=== PATIENT | male | born 1950 | race Caucasian/White ===

== ENCOUNTER → 2017-01-12 | Outpatient (CLI) | payer OTHER ==
[2017-01-12 14:25] LABS: RATIO 16.9 mcg/mg (0-30.0)
[2017-01-12 14:33] LABS: ESTIMATED AVERAGE GLUCOSE 126 mg/dl; HA1C FLAG Normal (Normal)
[2017-01-12 15:15] LABS: ALKALINE PHOSPHATASE 56 U/L (45-117); ALT/SGPT 34 U/L (12-78); AST/SGOT 19 U/L (15-37); BLOOD UREA NITROGEN 23 mg/dl (7-18); BUN/CREATININE RATIO 14.1 (10-20); CALCIUM 8.9 mg/dl (8.5-10.1); CARBON DIOXIDE 26 mmol/L (21-32); CHLORIDE 111 mmol/L (98-107); CHOLESTEROL 131 mg/dl (0-200); GLUCOSE 128 mg/dl (70-99); POTASSIUM 4.2 mmol/L (3.5-5.1); SODIUM 144 mmol/L (136-145); TRIGLYCERIDES 100 mg/dl (0-150); VERY LOW DENSITY LIPOPROT CALC 20 mg/dl
[2017-01-12 15:19] LABS: ALB/GLOB RATIO 1.2 (0.9-2); CHOLESTEROL/HDL RATIO 2.4; HDL CHOLESTEROL 54 mg/dl; LDL CHOLESTEROL CALCULATED 57 mg/dl
== END | disposition home or self-care (01) ==
LOC: C.LABMFLN 08:25
PROVIDERS: ATTEND Family Medicine
DX: E11.9 Type 2 diabetes mellitus without complications (principal); E78.00 Pure hypercholesterolemia, unspecified; I10 Essential (primary) hypertension

== ENCOUNTER → 2017-01-15 | Outpatient (CLI) | payer OTHER | END | disposition home or self-care (01) | LOC: C.PATHSPEC 13:46 | PROVIDERS: ATTEND Family Medicine | DX: L82.1 Other seborrheic keratosis (principal) ==

== ENCOUNTER → 2017-07-14 | Outpatient (CLI) | payer OTHER ==
[2017-07-14 13:24] LABS: ESTIMATED AVERAGE GLUCOSE 128 mg/dl; HA1C FLAG Normal (Normal)
[2017-07-14 13:54] LABS: RATIO 19.1 mcg/mg (0-30.0)
[2017-07-14 13:58] LABS: ALT/SGPT 28 U/L (12-78); BLOOD UREA NITROGEN 26 mg/dl (7-18); BUN/CREATININE RATIO 15.2 (10-20); CARBON DIOXIDE 29 mmol/L (21-32); CHLORIDE 109 mmol/L (98-107); CHOLESTEROL 118 mg/dl (0-200); GLUCOSE 129 mg/dl (70-99); POTASSIUM 4.2 mmol/L (3.5-5.1); SODIUM 142 mmol/L (136-145); TRIGLYCERIDES 148 mg/dl (0-150); VERY LOW DENSITY LIPOPROT CALC 30 mg/dl
[2017-07-14 14:03] LABS: ALB/GLOB RATIO 1.1 (0.9-2); ALKALINE PHOSPHATASE 54 U/L (45-117); AST/SGOT 16 U/L (15-37); CHOLESTEROL/HDL RATIO 2.5; HDL CHOLESTEROL 47 mg/dl; LDL CHOLESTEROL CALCULATED 41 mg/dl; PROSTATE SPECIFIC ANTIGEN 0.619 ng/ml (0.000-4.000)
== END | disposition home or self-care (01) ==
LOC: C.LABMFLN 07:04
PROVIDERS: ATTEND Family Medicine
DX: E11.9 Type 2 diabetes mellitus without complications (principal); E78.00 Pure hypercholesterolemia, unspecified; I10 Essential (primary) hypertension; F25.9 Schizoaffective disorder, unspecified

== ENCOUNTER → 2017-10-27 | Outpatient (CLI) | payer OTHER | END | disposition home or self-care (01) | LOC: C.PATHSPEC 16:30 | PROVIDERS: ATTEND Dermatology | DX: C44.319 Basal cell carcinoma of skin of other parts of face (principal) ==

== ENCOUNTER → 2017-11-04 | Outpatient (CLI) | payer OTHER ==
[2017-11-04 12:54] LABS: BASO % 0.5 %; BASO ABS # 0.03 K/uL (0-0.2); EOS % 5.3 %; EOS ABS # 0.32 K/uL (0-0.5); IG# 0.11 K/uL (0.00-0.02); LYMPH % 39.8 %; MEAN CELL VOLUME 92.1 fL (80-100); MEAN CORPUSCULAR HEMOGLOBIN 31.5 pg (25-34); MEAN CORPUSCULAR HGB CONC 34.1 g/dl (32-36); MEAN PLATELET VOLUME 10.2 fL (7.4-10.4); MONO % 8.1 %; MONO ABS # 0.49 K/uL (0.11-0.59); NEUT % 44.5 %; NEUT ABS # 2.68 K/uL (1.4-6.5); PLATELET COUNT 175 K/uL (130-400); RED CELL DISTRIBUTION WIDTH SD 43.6 fL (36.4-46.3); WHITE BLOOD COUNT 6.03 K/uL (4.8-10.8)
[2017-11-04 13:12] LABS: HEMOGLOBIN A1C 6.7 % (4.5-5.6)
[2017-11-04 13:17] LABS: ALBUMIN 3.2 gm/dl (3.4-5.0); ALT/SGPT 33 U/L (12-78); BLOOD UREA NITROGEN 34 mg/dl (7-18); CARBON DIOXIDE 25 mmol/L (21-32); CHOLESTEROL 150 mg/dl (0-200); CREATININE 1.69 mg/dl (0.60-1.40); GLUCOSE 182 mg/dl (70-99); POTASSIUM 4.1 mmol/L (3.5-5.1); SODIUM 139 mmol/L (136-145)
[2017-11-04 13:20] LABS: ALKALINE PHOSPHATASE 69 U/L (45-117); AST/SGOT 16 U/L (15-37); LDL CHOLESTEROL CALCULATED 52 mg/dl; TOTAL PROTEIN 6.5 gm/dl (6.4-8.2)
== END | disposition home or self-care (01) ==
LOC: C.LABMFLN 08:20
PROVIDERS: ATTEND Psychiatry & Neurology Psychiatry
DX: Z79.899 Other long term (current) drug therapy (principal)

== ENCOUNTER → 2018-01-19 | Outpatient (CLI) | payer OTHER ==
[2018-01-19 13:04] LABS: BASO % 0.5 %; BASO ABS # 0.03 K/uL (0-0.2); EOS % 5.5 %; EOS ABS # 0.32 K/uL (0-0.5); HEMATOCRIT 41.9 % (42-52); HEMOGLOBIN 14.5 g/dL (14.0-18.0); IG# 0.08 K/uL (0.00-0.02); LYMPH % 32.3 %; LYMPH ABS # 1.89 K/uL (1.2-3.4); MEAN CELL VOLUME 91.7 fL (80-100); MEAN CORPUSCULAR HEMOGLOBIN 31.7 pg (25-34); MEAN CORPUSCULAR HGB CONC 34.6 g/dl (32-36); MONO % 8.9 %; MONO ABS # 0.52 K/uL (0.11-0.59); NEUT % 51.4 %; NEUT ABS # 3.02 K/uL (1.4-6.5); PLATELET COUNT 184 K/uL (130-400); RED CELL DISTRIBUTION WIDTH CV 13.2 % (11.5-14.5); RED CELL DISTRIBUTION WIDTH SD 43.7 fL (36.4-46.3); WHITE BLOOD COUNT 5.86 K/uL (4.8-10.8)
[2018-01-19 13:29] LABS: HEMOGLOBIN A1C 7.7 % (4.5-5.6)
[2018-01-19 14:09] LABS: ALBUMIN 3.6 gm/dl (3.4-5.0); ALT/SGPT 39 U/L (12-78); AST/SGOT 22 U/L (15-37); BLOOD UREA NITROGEN 29 mg/dl (7-18); CALCIUM 9.5 mg/dl (8.5-10.1); CARBON DIOXIDE 28 mmol/L (21-32); CREATININE 1.89 mg/dl (0.60-1.40); GLUCOSE 179 mg/dl (70-99); POTASSIUM 4.2 mmol/L (3.5-5.1); SODIUM 140 mmol/L (136-145)
[2018-01-19 14:12] LABS: ALKALINE PHOSPHATASE 67 U/L (45-117); CHOLESTEROL 165 mg/dl (0-200); LDL CHOLESTEROL CALCULATED 76 mg/dl; TOTAL PROTEIN 7.4 gm/dl (6.4-8.2)
== END | disposition home or self-care (01) ==
LOC: C.LABMFLN 10:03
PROVIDERS: ATTEND Family Medicine
DX: E11.9 Type 2 diabetes mellitus without complications (principal); E78.00 Pure hypercholesterolemia, unspecified; N18.9 Chronic kidney disease, unspecified; F25.9 Schizoaffective disorder, unspecified; C43.9 Malignant melanoma of skin, unspecified

== ENCOUNTER → 2018-04-30 | Outpatient (CLI) | payer OTHER ==
[2018-04-30 18:32] LABS: ALBUMIN 3.4 gm/dl (3.4-5.0); BLOOD UREA NITROGEN 28 mg/dl (7-18); CALCIUM 8.8 mg/dl (8.5-10.1); CARBON DIOXIDE 28 mmol/L (21-32); CREATININE 1.78 mg/dl (0.60-1.40); GLUCOSE 176 mg/dl (70-99); PHOSPHORUS 2.9 mg/dl (2.5-4.9); POTASSIUM 4.5 mmol/L (3.5-5.1); SODIUM 140 mmol/L (136-145)
== END | disposition home or self-care (01) ==
LOC: C.LABMFLN 12:13
PROVIDERS: ATTEND Internal Medicine Nephrology
DX: N17.9 Acute kidney failure, unspecified (principal)